=== PATIENT | male | born 1985 | race American Indian/Alaskan Native ===

== ENCOUNTER 2018-04-06 07:28 | Emergency (ER) | payer OTHER ==
[2018-04-06 07:34] VITALS: BP 146/89; PULSE 119; TEMP 97; O2SAT 98; BMI 20.3
[2018-04-06] MEDS ORDERED: Sodium Chloride 0.9% 1,000 ML IV STA (07:45)
--- NOTE | 2018-04-06 07:49 | ED PDOC ---
HPI: Seizure Time Seen by Provider: 04/06/18 07:31 Chief Complaint (Provider): Shaking History Per: Patient, EMS History/Exam Limitations: no limitations Additional Complaint(s): Pt. states he went to bed at work at 6am, woke up at 645am. Then next thing he knows he was in the ambulance. has mild headache, not worst in his life now (not before when he went to bed). No neck pain, numbness, tingles, weakness, dizziness, chest pain, dyspnea, cough, abd pain, nausea, vomit, diarrhea. No incontinence or constipation EMS states they saw pt. shaking some and was confused. Was back to aaox3 when arriving to the ER. Pt. was seen by co-workers shaking so EMS called. Unclear how long episode lasted. Past Medical History Reviewed: Nursing Documentation, Vital Signs Vital Signs: Last Vital Signs Temp 97 F L 04/06/18 07:32 Pulse 119 H 04/06/18 07:32 Resp BP 146/89 04/06/18 07:32 Pulse Ox 98 04/06/18 07:32 - Medical History PMH: No Chronic Diseases - Surgical History Surgical History: No Surg Hx - Family History Family History: States: Unknown Family Hx - Social History Alcohol: None Drugs: Cannabis - Allergies Allergies/Adverse Reactions: Allergies Allergy/AdvReac Type Severity Reaction Status Date / Time No Known Allergies Allergy Verified 04/06/18 07:44 Review of Systems ROS Statement: Except As Marked, All Systems Reviewed And Found Negative Neurological: Positive for: Confusion, Seizures, Headache Physical Exam - Reviewed Nursing Documentation Reviewed: Yes Vital Signs Reviewed: Yes - Physical Exam Appears: Positive for: Non-toxic, No Acute Distress Head Exam: Positive for: ATRAUMATIC, NORMAL INSPECTION, NORMOCEPHALIC Skin: Positive for: Normal Color, Warm, DRY Eye Exam: Positive for: EOMI, Normal appearance, PERRL ENT: Positive for: Other (no septal hematoma or tongue lacerations; left upper lip mild swelling and dried blood.). Negative for: Nasal Congestion, Tonsillar Exudate Neck: Positive for: Normal, Painless ROM Cardiovascular/Chest: Positive for: Regular Rate, Rhythm Respiratory: Positive for: CNT, Normal Breath Sounds Gastrointestinal/Abdominal: Positive for: Normal Exam, Soft. Negative for: Tenderness Back: Positive for: Normal Inspection. Negative for: L CVA Tenderness, R CVA Tenderness Extremity: Positive for: Normal ROM. Negative for: Tenderness, Pedal Edema Neurologic/Psych: Positive for: Alert, negotiator sales II-XII, Oriented. Negative for: Motor/Sensory Deficits, Aphasia, Facial Droop - Laboratory Results Result Diagrams: 04/06/18 08:12 04/06/18 08:12 Interpretation Of Abn Labs: urine amphetamines and cannabis; lactate 6.4; cpk elevated - ECG ECG: Positive for: Interpreted By Me (c), Viewed By Me ECG Rhythm: Positive for: Normal QRS, Normal ST Segment, Sinus Rhythm O2 Sat by Pulse Oximetry: 98 Pulse Ox Interpretation: Normal - CT Scan/US ct Other Rad Studies (CT/US): Read By Radiologist Other Rad Interpretation: no acute - Progress ED Course And Treament: 1205: Spoke with Dr. Alvarez. Wants pt. to be admitted and get EEG. Will need further evaluation and wants no seizure meds yet. 1250: Stable. Pt. aware of or decreased functioning from not getting studies and treatment for seizures. Pt. will go against medical advice. Has capacity to make decisions. AAOx3. Ambulated with no issues. Disposition - Clinical Impression Clinical Impression: Generalized seizure, Polysubstance abuse - Patient ED Disposition Is Patient to be Admitted: No Counseled Patient/Family Regarding: Studies Performed, Diagnosis, Need For Followup - Disposition Referrals: [facility] [Outside] - 04/07/18 Disposition: Against Medical Advice Disposition Time: 12:00 Condition: STABLE Additional Instructions: You are going against medical advice. We recommend you stay and get further evaluation, testing, and treatment. You are aware of possible or decrea sed functioning from your symptoms that are not treated. Instructions: Seizures, Adult (DC), Polysubstance Abuse
[2018-04-06 08:13] LABS: VENOUS BLOOD GAS BASE EXCESS -5.6 mmol/L (0.0-2.0); VENOUS BLOOD GAS PCO2 42 mmHg (40-60); VENOUS BLOOD GAS PO2 29 mm/Hg (30-55)
[2018-04-06 08:20] LABS: BASO # 0.1 K/uL (0.0-0.2); BASO % 0.7 % (0.0-2.0); EOS # 0.1 K/uL (0.0-0.7); EOS % 0.7 % (0.0-4.0); HEMOGLOBIN 15.9 g/dL (12.0-18.0); LYMPH # 1.9 K/uL (1.0-4.3); LYMPH % 16.6 % (20.0-40.0); MEAN CELL VOLUME 94.1 fl (80.0-94.0); MEAN CORPUSCULAR HEMOGLOBIN 30.8 pg (27.0-31.0); MEAN CORPUSCULAR HGB CONC 32.7 g/dL (33.0-37.0); MEAN PLATELET VOLUME 9.5 fl (7.2-11.7); MONO # 0.9 K/uL (0.0-0.8); MONO % 8.1 % (0.0-10.0); NEUT # 8.3 K/uL (1.8-7.0); NEUT % 73.9 % (50.0-75.0); NRBC % 0.3 % (0.0-0.0); RBC 5.17 Mil/uL (4.40-5.90); RED CELL DISTRIBUTION WIDTH 15.1 % (11.5-14.5); WHITE BLOOD COUNT 11.2 K/uL (4.8-10.8)
[2018-04-06 08:29] LABS: ALB/GLOB RATIO 1.4 (1.0-2.1); ALBUMIN 4.5 g/dL (3.5-5.0); ALT/SGPT 22 U/L (21-72); AST/SGOT 40 U/L (17-59); BLOOD UREA NITROGEN 7 mg/dl (9-20); CALCIUM 9.7 mg/dL (8.4-10.2); GFR NON-AFRICAN AMERICAN > 60
--- NOTE | 2018-04-06 09:17 | CT ---
Date of service: 04/06/2018 PROCEDURE: CT HEAD WITHOUT CONTRAST. HISTORY: headache COMPARISON: None available. TECHNIQUE: Axial computed tomography images were obtained through the head/brain without intravenous contrast. Radiation dose: Total exam DLP = 888.55 mGy-cm. This CT exam was performed using one or more of the following dose reduction techniques: Automated exposure control, adjustment of the mA and/or kV according to patient size, and/or use of iterative reconstruction technique. FINDINGS: HEMORRHAGE: No intracranial hemorrhage. BRAIN: No mass effect or edema. No atrophy or chronic microvascular ischemic changes. VENTRICLES: Unremarkable. No hydrocephalus. CALVARIUM: Unremarkable. PARANASAL SINUSES: Unremarkable as visualized. No significant inflammatory changes. MASTOID AIR CELLS: Unremarkable as visualized. No inflammatory changes. OTHER FINDINGS: None. IMPRESSION: Normal CT of the Head. No acute intracranial hemorrhage.
[2018-04-06 10:12] LABS: BARBITURATES, UR NEGATIVE (NEGATIVE); BENZODIAZEPINES, UR NEGATIVE (NEGATIVE)
[2018-04-06 10:13] LABS: OPIATES, UR NEGATIVE (NEGATIVE); PHENCYCLIDINE, UR NEGATIVE (NEGATIVE)
--- NOTE | 2018-04-06 18:59 | CARD ---
APPROVED REPORT Date of service: 04/06/2018 EKG Measurement Heart [id number] [id number] <Conclusion> Normal sinus rhythm Rightward axis Otherwise normal ECG
== END 2018-04-06 13:09 | disposition home or self-care (01) ==
LOC: H.ER 07:28
DX: R56.9 Unspecified convulsions (principal); F19.10 Other psychoactive substance abuse, uncomplicated
CPT/HCPCS: 70450; 80053; 80320; 80324; 80345; 80346; 80349; 80353; 80358; 80361; 82550; 82803; 82948; 83992; 84484; 85025; 93005; 99285; J7030